=== PATIENT | female | born 1995 | race Caucasian/White ===

== ENCOUNTER 2017-02-11 15:22 | Emergency (ER) | payer BC ==
[~2017-02-11] VITALS: Ht 162.6 cm; Wt 49.9 kg
[2017-02-11] MEDS ORDERED: BACTRIM 400-801 EACH PO (18:00)
== END 2017-02-11 18:04 | disposition home or self-care (01) ==
LOC: ER 15:22
DX: R30.0 Dysuria (principal); N30.80 Other cystitis without hematuria